=== PATIENT | male | born 1990 | race Caucasian/White ===

== ENCOUNTER 2016-10-25 20:40 | Emergency (ER) | payer MEDICAID ==
[~2016-10-25] VITALS: Ht 195.6 cm; Wt 175.9 kg
[2016-10-25] MEDS ORDERED: DOCUSATE 50 MG/5 ML ORAL SOL OT PRN (21:30)
[2016-10-25 23:30] VITALS: BP 148/99
== END 2016-10-25 23:50 ==
LOC: ED 23:20
DX: H61.22 Impacted cerumen, left ear (principal)
CPT/HCPCS: 69209; 99283